=== PATIENT | female | born 1990 | race Caucasian/White ===

== ENCOUNTER 2020-08-30 09:30 | Emergency (ER) | payer SELFPAY ==
[~2020-08-30] VITALS: Ht 170.2 cm; Wt 50.5 kg
[2020-08-30 09:36] VITALS: TEMP 98.2
[2020-08-30 10:20] LABS: COLLECTION METHOD CLEAN CATCH
[2020-08-30 10:33] LABS: MUCOUS Present /lpf; PH 6 (5-8); SQUAMOUS EPITHELIAL 0-2 /hpf; URINE APPEARANCE Hazy; URINE BACTERIA Rare /hpf; URINE BILIRUBIN Negative (NEGATIVE); URINE BLOOD 1+ (NEGATIVE); URINE COLOR Yellow; URINE GLUCOSE Negative (NEGATIVE); URINE KETONE Negative (NEGATIVE); URINE LEUKOCYTE ESTERASE Negative (NEGATIVE); URINE NITRATE Negative (NEGATIVE); URINE PROTEIN(semi-quant) Negative (NEGATIVE); URINE RBC 0-2 /hpf; URINE UROBILINOGEN Negative (NEGATIVE)
[2020-08-30] MEDS ORDERED: DOXYCYCLINE 10100 MG PO (11:31)
[2020-08-30] MEDS ORDERED: FLAGYL500 MG PO (11:31)
[2020-08-30 11:37] VITALS: BP 122/82; PULSE 90
== END 2020-08-30 11:37 | disposition home or self-care (01) ==
LOC: COL.ER 09:30
PROVIDERS: Emergency Medicine
DX: N76.0 Acute vaginitis (principal); Z32.02 Encounter for pregnancy test, result negative
CPT/HCPCS: J0696